=== PATIENT | female | born 1975 | race Caucasian/White ===

== ENCOUNTER → 2017-06-18 07:30 | Outpatient (CLI) | payer BC ==
[2016-04-23 09:10] VITALS: BMI 35.5
--- NOTE | ~2017-06-18 | EMG ---
PATIENT:SANDRA ANTONIO DATE OF SERVICE: 06/18/17 MEDICAL RECORD: [id number] DATE OF : 77 LOCATION: [facility] ADMISSION DATE: REFERRING PHYSICIAN: KRISH HUNT MD INTERPRETING PHYSICIAN: GRIFFIN REYES MD DATE OF SERVICE: 06/18/2017 ELECTROMYOGRAPHIC DATA: Electromyographic examination is limited to the right upper extremity. In the right upper extremity, right median motor stimulation elicits a compound motor action potential with a distal latency of 3.3 milliseconds, peak amplitude of 5 millivolts, and calculated conduction velocity of 56 meters per second. Right ulnar motor stimulation elicits a compound motor action potential with a distal latency of 2.8 milliseconds, peak amplitude of 8 millivolts, and calculated conduction velocity of 70 meters per second. Right ulnar motor stimulation across the elbow fails to elicit evidence of conduction block at this level. Antidromic right median sensory stimulation elicits a response with a distal latency of 3.2 milliseconds, amplitude of 19 microvolts and calculated conduction velocity of 62 meters per second. Antidromic right ulnar sensory stimulation elicits a response with a distal latency of 3.2 milliseconds, amplitude of 30 microvolts and calculated conduction velocity of 68 meters per second. The right median F wave has a latency of 26 milliseconds. Needle electrode examination is limited to the right upper extremity as well. Muscles interrogated include the abductor pollicis brevis, first dorsal interosseous, abductor digiti minimi, pronator teres, biceps brachii, triceps and deltoid. There is no abnormality of insertional activity and no abnormal spontaneous activity is seen in all muscles interrogated. Motor unit potential morphology and the pattern of motor unit potential firing and recruitment is normal in all muscles sampled. INTERPRETATION: Electromyographic examination of the right upper extremity is normal. There is no electrical evidence of a cervical radiculopathy or other lesion of the lower motor neuron in the right upper extremity at this time. There is no evidence of active denervation. TRANSINT:[id number] Voice Confirmation ID: [id number] DOCUMENT ID: [id number] GRIFFIN REYES MD CC: [id number] DICTATION DATE: 06/18/1735 TRACTOR EXPERT: 06/18/1757 [id number] [place] [address]
[~2017-06-18 07:30] MED LIST: LEVOTHYROXINE75 MCG PO; OMEPRAZOLE40 MG PO; PEPCID20 MG PO; WELLBUTRIN XL150 M1 PO
== END | disposition home or self-care (01) ==
LOC: D.CN 07:30
DX: M79.601 Pain in right arm (principal)

== ENCOUNTER → 2018-05-29 16:08 | Outpatient (CLI) | payer BC ==
[2016-04-23 09:10] VITALS: BMI 35.5
== END | disposition home or self-care (01) ==
LOC: D.MRI 16:08
DX: M54.5 Low back pain (principal)

== ENCOUNTER → 2018-07-06 19:00 | Outpatient (CLI) | payer BC ==
[2016-04-23 09:10] VITALS: BMI 35.5
== END ==
LOC: D.LABREF 19:00
DX: D17.9 Benign lipomatous neoplasm, unspecified (principal)

== ENCOUNTER 2019-04-05 08:00 | Outpatient (CLI) | payer BC ==
[2016-04-23 09:10] VITALS: BMI 35.5
== END 2019-04-05 23:59 | disposition home or self-care (01) ==
LOC: D.MAMMO 08:00
PROVIDERS: ATTEND Family Medicine
DX: Z12.31 Encounter for screening mammogram for malignant neoplasm of breast (principal)